=== PATIENT | female | born 1960 | race Caucasian/White ===

== ENCOUNTER 2021-10-24 13:09 | Inpatient (IN) | payer MEDICARE, MEDICAID ==
[~2021-10-24] VITALS: Ht 154.9 cm; Wt 79.8 kg
[~2021-10-24 13:09] MED LIST: ALBU8HFA IH; ARIP15TA27 PO; DIPH25CA85 PO; ESCI5TAB PO; METF-1211 PO; OMEP20 PO; TEMA15CA PO
[2021-10-24] MEDS ORDERED: HALOPERIDOL LACTATE 5 MG/ML VIAL IM ONE (14:45)
[2021-10-24] MEDS ORDERED: LORazepam 2 MG/ML VIAL IM ONE (14:45)
[2021-10-24] MEDS ORDERED: DiphenhydrAMINE HCL 50 MG/ML VIAL IM ONE (14:45)
[2021-10-24 14:49] LABS: ANION GAP 8 mmol/L (8-16); CALCIUM, TOTAL 8.8 mg/dL (8.8-10.5); CARBON DIOXIDE 29 mmol/L (22-29); CHLORIDE 104 mmol/L (98-107); CREATININE 0.75 mg/dL (0.60-1.30); GLOMERULAR FILTR. RATE CALC > 60 mL/min (>60); GLUCOSE,RANDOM 218 mg/dL (70-110); POTASSIUM 4.1 mmol/L (3.5-5.1); SODIUM SERUM 141 mmol/L (136-145); UREA NITROGEN, BLOOD 16 mg/dL (7-18)
[2021-10-24 14:55] LABS: ALANINE AMINOTRANSFERASE 17 U/L (12-78); ALKALINE PHOSPHATASE 99 U/L (46-116); ASPARTATE AMINOTRANSFERASE 13 U/L (15-37); BILIRUBIN,TOTAL 0.1 mg/dL (0.1-1.0); TOTAL PROTEIN, SERUM 6.7 g/dL (6.4-8.2)
[2021-10-24 15:28] LABS: BASOPHILS % (AUTO) 0.9 % (0.0-2.0); EOSINOPHILS % (AUTO) 1.7 % (1.0-6.0); HEMATOCRIT 36.3 % (36-46); HEMOGLOBIN 11.9 g/dL (12.0-16.0); LYMPHOCYTES # (AUTO) 2.1 K/uL (1.0-4.8); LYMPHOCYTES % (AUTO) 16.5 % (22.0-44.0); MEAN CORPUSCULAR HEMOGLOBIN 26.5 pg (26.0-34.0); MEAN CORPUSCULAR HGB CONC 32.8 G/dL (31.0-37.0); MEAN CORPUSCULAR VOLUME 81 fL (80-100); MONOCYTES # (AUTO) 0.6 K/uL (0.1-1.0); MONOCYTES % (AUTO) 4.7 % (2.0-9.0); NEUTROPHILS # (AUTO) 9.6 K/uL (1.8-7.7); NEUTROPHILS % (AUTO) 76.2 % (40.0-70.0); RED BLOOD CELL COUNT(AUTO) 4.49 MIL/uL (4.00-5.20); RED CELL DISTRIBUTION WIDTH 14.3 % (11.5-14.5)
[2021-10-24 15:36] LABS: PLATELET COUNT (AUTO) 421 K/uL (150-450)
[2021-10-24 15:39] LABS: PLATELET MORPHOLOGY COMMENT LARGE PLTS PRESENT
[2021-10-24] MEDS ORDERED: ZOLPIDEM TARTRATE 10 MG TABLET PO PRN (15:45)
[2021-10-24] MEDS ORDERED: HALOPERIDOL 5 MG TABLET PO PRN (15:45)
[2021-10-24 15:50] LABS: COVID AG,FIA SOURCE NASOPHARYNGEAL
[2021-10-24 18:46] VITALS: BP 110/60
[2021-10-25] MEDS ORDERED: PNEUMOCOCCAL VACCINE POLYVALENT 0.5 ML VIAL [PPSV23] IM. ONE (06:15)
[2021-10-25] MEDS: MetFORMIN HCL 500 MG TABLET PO SCH (07:07)
[2021-10-25 08:48] VITALS: BP 112/62
[2021-10-25] MEDS: ESCITALOPRAM OXALATE 10 MG TABLET PO SCH (13:06)
[2021-10-25 16:38] LABS: GLUCOMETER DEV NAME(LOC) BV2X.2; GLUCOSE,POINT OF CARE 131 MG/DL (70-110)
[2021-10-25] MEDS: RisperiDONE 3 MG TABLET PO SCH (16:56)
[2021-10-25] MEDS ORDERED: NICOTINE 14 MG/24 HOUR PATCH TD PRN (17:30)
[2021-10-26] MEDS: MetFORMIN HCL 500 MG TABLET PO SCH (06:53)
[2021-10-26] MEDS: RisperiDONE 3 MG TABLET PO SCH ×2 (08:13→16:10)
[2021-10-26] MEDS: ESCITALOPRAM OXALATE 10 MG TABLET PO SCH (08:14)
[2021-10-26] MEDS: LORazepam 2 MG TABLET PO PRN (08:15)
[2021-10-26 08:40] VITALS: BP 114/72
[2021-10-27] MEDS: MetFORMIN HCL 500 MG TABLET PO SCH (07:02)
[2021-10-27 08:18] VITALS: BP 134/73
[2021-10-27] MEDS: ESCITALOPRAM OXALATE 10 MG TABLET PO SCH (08:43)
[2021-10-27] MEDS: RisperiDONE 3 MG TABLET PO SCH ×2 (08:43→16:55)
[2021-10-27 16:09] VITALS: BP 151/85
[2021-10-28] MEDS: MetFORMIN HCL 500 MG TABLET PO SCH (06:44)
[2021-10-28 08:22] VITALS: BP 156/91
[2021-10-28] MEDS: ESCITALOPRAM OXALATE 10 MG TABLET PO SCH (08:28)
[2021-10-28] MEDS: RisperiDONE 3 MG TABLET PO SCH ×2 (08:28→19:06)
[2021-10-28] MEDS: LORazepam 2 MG TABLET PO PRN (15:24)
[2021-10-28 16:13] VITALS: BP 150/84
[2021-10-28 20:04] VITALS: BP 128/82
[2021-10-29 03:31] VITALS: BP 138/84
[2021-10-29] MEDS: MetFORMIN HCL 500 MG TABLET PO SCH (06:41)
[2021-10-29 08:17] VITALS: BP 124/76
[2021-10-29] MEDS: RisperiDONE 3 MG TABLET PO SCH ×2 (08:24→16:37)
[2021-10-29] MEDS: ESCITALOPRAM OXALATE 10 MG TABLET PO SCH (08:24)
[2021-10-29 09:12] LABS: GLUCOMETER DEV NAME(LOC) POC.BV
[2021-10-29] MEDS ORDERED: LOPERAMIDE HCL 2 MG CAPSULE PO ONE (14:00)
[2021-10-29] MEDS: LORazepam 2 MG TABLET PO PRN (15:24)
[2021-10-29 16:05] VITALS: BP 132/75
[2021-10-30 00:10] VITALS: BP 126/72
[2021-10-30] MEDS: MetFORMIN HCL 500 MG TABLET PO SCH (06:57)
[2021-10-30] MEDS: ESCITALOPRAM OXALATE 10 MG TABLET PO SCH (07:57)
[2021-10-30] MEDS: RisperiDONE 3 MG TABLET PO SCH (07:57)
[2021-10-30 09:03] VITALS: BP 118/68
[2021-10-30] MEDS ORDERED: RISP3TAB63 PO (11:09)
[2021-10-30] MEDS ORDERED: ESCI10 PO (11:09)
== END 2021-10-30 15:30 | disposition home or self-care (01) | DRG 885 ==
LOC: EMS 13:09 → B2X 17:01
PROVIDERS: ADMIT Psychiatry & Neurology Child & Adolescent Psychiatry; ATTEND Psychiatry & Neurology Child & Adolescent Psychiatry
DX: F25.0 Schizoaffective disorder, bipolar type (principal); R45.851 Suicidal ideations; D72.829 Elevated white blood cell count, unspecified; E78.5 Hyperlipidemia, unspecified; F10.10 Alcohol abuse, uncomplicated; F15.10 Other stimulant abuse, uncomplicated; G89.29 Other chronic pain; J44.9 Chronic obstructive pulmonary disease, unspecified; K59.00 Constipation, unspecified; F41.9 Anxiety disorder, unspecified; Y90.9 Presence of alcohol in blood, level not specified; Z20.822 Contact with and (suspected) exposure to COVID-19; F22 Delusional disorders; F19.10 Other psychoactive substance abuse, uncomplicated; Z71.51 Drug abuse counseling and surveillance of drug abuser; Z86.73 Personal history of transient ischemic attack (TIA), and cerebral infarction without residual deficits; Z28.21 Immunization not carried out because of patient refusal; Z71.41 Alcohol abuse counseling and surveillance of alcoholic
CPT/HCPCS: 80053; 82962; 85025; 87081; 99285; G0480; J1200; J1630; J2060

== ENCOUNTER 2023-06-18 15:20 | Inpatient (IN) | payer MEDICARE, OTHER ==
[~2023-06-18] VITALS: Ht 154.9 cm; Wt 68.1 kg
[~2023-06-18 15:20] MED LIST changes: -ALBU8HFA IH; -ARIP15TA27 PO; -DIPH25CA85 PO; +ESCI10 PO; -ESCI5TAB PO; -METF-1211 PO; -OMEP20 PO; +RISP3TAB63 PO; -TEMA15CA PO
[2023-06-18] MEDS ORDERED: ZOLPIDEM TARTRATE 10 MG TABLET PO PRN (20:30)
[2023-06-18 21:23] VITALS: BP 143/93; PULSE 86; RESP 18; TEMP 97.9; O2SAT 97
[2023-06-18] MEDS ORDERED: ONDANSETRON HCL 4 MG TABLET PO PRN (21:45)
[2023-06-18] MEDS ORDERED: MAGNESIUM HYDROXIDE SUSPENSION 30 ML UDCUP PO PRN (21:45)
[2023-06-18] MEDS ORDERED: IBUPROFEN 600 MG TABLET PO PRN (21:45)
[2023-06-18] MEDS ORDERED: BACITRACIN 28 GM OINTMENT TP PRN (21:45)
[2023-06-18] MEDS ORDERED: DOCUSATE SODIUM 100 MG CAPSULE PO PRN (21:45)
[2023-06-18] MEDS ORDERED: ACETAMINOPHEN 325 MG TABLET PO PRN (21:45)
[2023-06-18] MEDS ORDERED: PETROLATUM,WHITE 28 GM JELLY TP PRN (21:45)
[2023-06-18] MEDS ORDERED: MAG HYDROX/ALUMINUM HYD/SIMETH ES 30 ML SUSPENSION UDCUP PO PRN (21:45)
[2023-06-18] MEDS ORDERED: CloNIDine HCL 0.1 MG TABLET PO PRN (21:45)
[2023-06-18] MEDS ORDERED: OMEPRAZOLE 20 MG CAPSULE PO PRN (21:45)
[2023-06-18] MEDS ORDERED: ALBUTEROL SULFATE HFA 90 MCG/PUFF 8 GM INHALER IH PRN (21:45)
[2023-06-18] MEDS ORDERED: BENZOCAINE/MENTHOL LOZENGE PO PRN (21:45)
[2023-06-18] MEDS ORDERED: PNEUMOCOCCAL VACCINE POLYVALENT 0.5 ML SYRINGE [PPSV23] IM. ONE (23:15)
[2023-06-18] MEDS ORDERED: INFLUENZA VIRUS VACCINE QVS 2023-24 (6MO+)/PF 60 MCG/0.5 ML SYRINGE IM. ONE (23:15)
[2023-06-19 08:21] VITALS: BP 137/62; PULSE 80; RESP 16; TEMP 98; O2SAT 98
[2023-06-19] MEDS: HALOPERIDOL 5 MG TABLET PO PRN ×2 (08:22→10:13)
[2023-06-19] MEDS: LORazepam 2 MG TABLET PO PRN ×2 (08:22→10:13)
[2023-06-19 08:43] LABS: BASOPHILS % (AUTO) 0.4 % (0.0-2.0); EOSINOPHILS % (AUTO) 3.2 % (1.0-6.0); HEMATOCRIT 39.2 % (36-46); HEMOGLOBIN 13.1 g/dL (12.0-16.0); LYMPHOCYTES # (AUTO) 1.7 K/uL (1.0-4.8); LYMPHOCYTES % (AUTO) 24.8 % (22.0-44.0); MEAN CORPUSCULAR HEMOGLOBIN 28.8 pg (26.0-34.0); MEAN CORPUSCULAR HGB CONC 33.6 G/dL (31.0-37.0); MEAN CORPUSCULAR VOLUME 86 fL (80-100); MONOCYTES # (AUTO) 0.5 K/uL (0.1-1.0); MONOCYTES % (AUTO) 6.7 % (2.0-9.0); NEUTROPHILS # (AUTO) 4.6 K/uL (1.8-7.7); NEUTROPHILS % (AUTO) 64.9 % (40.0-70.0); PLATELET COUNT (AUTO) 420 K/uL (150-450); RED BLOOD CELL COUNT(AUTO) 4.57 MIL/uL (4.00-5.20); RED CELL DISTRIBUTION WIDTH 13.8 % (11.5-14.5)
[2023-06-19 09:01] LABS: HEMOGLOBIN A1C 6.4 % (3.8-5.6)
[2023-06-19 09:19] LABS: ALANINE AMINOTRANSFERASE 23 U/L (12-78); ALBUMIN 3.2 g/dL (3.4-5.0); ALKALINE PHOSPHATASE 101 U/L (46-116); ANION GAP 11 mmol/L (8-16); ASPARTATE AMINOTRANSFERASE 14 U/L (15-37); BILIRUBIN,TOTAL 0.5 mg/dL (0.1-1.0); CALCIUM, TOTAL 8.8 mg/dL (8.8-10.5); CARBON DIOXIDE 25 mmol/L (22-29); CHLORIDE 105 mmol/L (98-107); CHOL/HDL RATIO 4.2 (3.9-5.7); CHOLESTEROL 158 mg/dL (131-200); CREATININE 0.72 mg/dL (0.60-1.30); GLOMERULAR FILTR. RATE CALC > 60 mL/min (>60); GLUCOSE,RANDOM 199 mg/dL (70-110); HDL CHOLESTEROL 38 mg/dL (40-60); LDL CHOL (CALC.) 87 mg/dL (0-130); POTASSIUM 3.3 mmol/L (3.5-5.1); SODIUM SERUM 141 mmol/L (136-145); TOTAL PROTEIN, SERUM 6.9 g/dL (6.4-8.2); TRIGLYCERIDES 166 mg/dL (15-150); UREA NITROGEN, BLOOD 22 mg/dL (7-18)
[2023-06-19 09:48] LABS: FREE T4 (FREE THYROXINE) 1.12 ng/dL (0.76-1.46); THYROID STIMULATING HORMONE 0.86 uIU/mL (0.36-3.74)
[2023-06-19] MEDS: DIVALPROEX SODIUM 500 MG DR TABLET PO SCH (16:33)
[2023-06-19] MEDS: RisperiDONE 3 MG TABLET PO SCH (16:33)
[2023-06-19 19:21] LABS: GLUCOMETER DEV NAME(LOC) BV3S.; GLUCOSE,POINT OF CARE 154 MG/DL (70-110)
[2023-06-19 20:20] VITALS: BP 148/72; PULSE 73; RESP 18; TEMP 97.5; O2SAT 95
[2023-06-19] MEDS ORDERED: LOSARTAN POTASSIUM 50 MG TABLET PO SCH ×2 (21:00→21:03)
[2023-06-19] MEDS ORDERED: LOSARTAN POTASSIUM 25 MG TABLET PO SCH (21:00)
[2023-06-19] MEDS: LOSARTAN POTASSIUM 50 MG TABLET PO SCH ×2 (21:08→21:16)
[2023-06-20] MEDS: GlipiZIDE 5 MG TABLET PO SCH ×2 (06:48→17:05)
[2023-06-20] MEDS: MetFORMIN HCL 500 MG TABLET PO SCH ×2 (06:48→17:05)
[2023-06-20] MEDS ORDERED: POTASSIUM CHLORIDE 20 MEQ ER TABLET PO ONE (07:30)
[2023-06-20] MEDS: RisperiDONE 3 MG TABLET PO SCH ×2 (07:53→17:05)
[2023-06-20] MEDS: ESCITALOPRAM OXALATE 10 MG TABLET PO SCH (07:53)
[2023-06-20] MEDS: LORazepam 2 MG TABLET PO PRN (07:53)
[2023-06-20] MEDS: DIVALPROEX SODIUM 500 MG DR TABLET PO SCH ×2 (07:54→17:05)
[2023-06-20] MEDS: LOSARTAN POTASSIUM 25 MG TABLET PO SCH (20:55)
[2023-06-21] MEDS: GlipiZIDE 5 MG TABLET PO SCH ×2 (06:40→16:15)
[2023-06-21] MEDS: MetFORMIN HCL 500 MG TABLET PO SCH ×2 (06:40→16:15)
[2023-06-21] MEDS: ESCITALOPRAM OXALATE 10 MG TABLET PO SCH (08:03)
[2023-06-21] MEDS: DIVALPROEX SODIUM 500 MG DR TABLET PO SCH ×2 (08:03→16:15)
[2023-06-21] MEDS: RisperiDONE 3 MG TABLET PO SCH ×2 (08:04→16:15)
[2023-06-21 08:26] VITALS: BP 155/91; PULSE 86; RESP 18; TEMP 98.2; O2SAT 96
[2023-06-21] MEDS: LORazepam 2 MG TABLET PO PRN (08:35)
[2023-06-21] MEDS: LOSARTAN POTASSIUM 25 MG TABLET PO SCH (20:11)
[2023-06-21 20:36] VITALS: BP 142/84; PULSE 82; RESP 18; TEMP 97.7; O2SAT 98
[2023-06-22] MEDS: GlipiZIDE 5 MG TABLET PO SCH ×2 (06:08→16:44)
[2023-06-22] MEDS: MetFORMIN HCL 500 MG TABLET PO SCH ×2 (06:08→17:06)
[2023-06-22 08:12] VITALS: BP 120/70; PULSE 98; RESP 16; TEMP 97.6; O2SAT 97
[2023-06-22] MEDS: ESCITALOPRAM OXALATE 10 MG TABLET PO SCH (08:37)
[2023-06-22] MEDS: DIVALPROEX SODIUM 500 MG DR TABLET PO SCH ×2 (08:37→17:06)
[2023-06-22] MEDS: RisperiDONE 3 MG TABLET PO SCH ×2 (08:37→17:07)
[2023-06-22] MEDS: LOPERAMIDE HCL 2 MG CAPSULE PO PRN (18:41)
[2023-06-22] MEDS: LOSARTAN POTASSIUM 25 MG TABLET PO SCH (21:21)
[2023-06-22 21:36] VITALS: BP 141/78; PULSE 100; RESP 18; TEMP 97.4; O2SAT 98
[2023-06-23] MEDS: GlipiZIDE 5 MG TABLET PO SCH ×2 (06:09→16:03)
[2023-06-23] MEDS: MetFORMIN HCL 500 MG TABLET PO SCH ×2 (06:09→17:17)
[2023-06-23 08:35] VITALS: BP 131/79; PULSE 85; RESP 16; TEMP 97.6; O2SAT 96
[2023-06-23] MEDS: DIVALPROEX SODIUM 500 MG DR TABLET PO SCH ×2 (09:05→16:03)
[2023-06-23] MEDS: RisperiDONE 3 MG TABLET PO SCH ×2 (09:05→16:03)
[2023-06-23] MEDS: LOPERAMIDE HCL 2 MG CAPSULE PO PRN (09:05)
[2023-06-23] MEDS: ESCITALOPRAM OXALATE 10 MG TABLET PO SCH (09:05)
[2023-06-23 20:03] VITALS: BP 108/60; PULSE 98; RESP 17; TEMP 97.8
[2023-06-23] MEDS: LOSARTAN POTASSIUM 25 MG TABLET PO SCH (22:35)
[2023-06-24] MEDS: GlipiZIDE 5 MG TABLET PO SCH (06:22)
[2023-06-24] MEDS: MetFORMIN HCL 500 MG TABLET PO SCH (06:42)
[2023-06-24 08:22] VITALS: BP 121/74; PULSE 83; RESP 17; TEMP 97.6; O2SAT 100
[2023-06-24] MEDS: DIVALPROEX SODIUM 500 MG DR TABLET PO SCH (08:22)
[2023-06-24] MEDS: RisperiDONE 3 MG TABLET PO SCH (08:22)
[2023-06-24] MEDS: ESCITALOPRAM OXALATE 10 MG TABLET PO SCH (08:22)
[2023-06-24] MEDS ORDERED: DIVA-112 PO (13:23)
[2023-06-24] MEDS ORDERED: LOSA-381 PO (13:24)
[2023-06-24] MEDS ORDERED: METF-1211 PO (13:24)
[2023-06-24] MEDS ORDERED: GLIP5TAB16 PO (13:24)
== END 2023-06-24 15:30 | disposition home or self-care (01) | DRG 881 ==
LOC: B3A 20:28
PROVIDERS: ADMIT Psychiatry & Neurology Psychiatry; ATTEND Psychiatry & Neurology Psychiatry
DX: F32.9 Major depressive disorder, single episode, unspecified (principal); R45.851 Suicidal ideations; J44.9 Chronic obstructive pulmonary disease, unspecified; E11.9 Type 2 diabetes mellitus without complications; K59.00 Constipation, unspecified; K21.9 Gastro-esophageal reflux disease without esophagitis; M54.50 Low back pain, unspecified; F41.9 Anxiety disorder, unspecified; G47.00 Insomnia, unspecified; Z87.891 Personal history of nicotine dependence
CPT/HCPCS: 80053; 80061; 80164; 82962; 83036; 84439; 84443; 85025

== ENCOUNTER 2025-01-23 10:49 | Inpatient (IN) | payer MEDICARE ==
[~2025-01-23 10:49] MED LIST changes: +DIVA-112 PO; +GLIP5TAB16 PO; +LOSA-381 PO; +METF-1211 PO; -RISP3TAB63 PO; +RISP3TAB77 PO
[2025-01-23 14:30] VITALS: BP 129/98; PULSE 72; RESP 18; TEMP 97.6; O2SAT 97
[2025-01-23 20:24] VITALS: BP 135/85; PULSE 77; RESP 18; TEMP 98; O2SAT 99
[2025-01-24 08:41] VITALS: BP 165/81; PULSE 69; RESP 16; TEMP 97.5; O2SAT 96
[2025-01-24 08:41] LABS: PLATELET COUNT (AUTO) 438 K/uL (150-450); RED BLOOD CELL COUNT(AUTO) 4.10 MIL/uL (4.00-5.20); RED CELL DISTRIBUTION WIDTH 14.2 % (11.5-14.5); WHITE BLOOD COUNT (AUTO) 7.2 K/uL (4.5-11.0)
[2025-01-24 08:52] LABS: ALCOHOL, BLOOD (SERUM) < 3 mg/dL (0-10)
[2025-01-24 08:55] LABS: ASPARTATE AMINOTRANSFERASE 18 U/L (15-37); CALCIUM, TOTAL 8.1 mg/dL (8.8-10.5); CREATININE 0.78 mg/dL (0.60-1.30); GLOMERULAR FILTR. RATE CALC > 60 mL/min (>60); GLUCOSE,RANDOM 184 mg/dL (70-110); SODIUM SERUM 142 mmol/L (136-145); TOTAL PROTEIN, SERUM 6.8 g/dL (6.4-8.2); UREA NITROGEN, BLOOD 18 mg/dL (7-18)
[2025-01-24] MEDS ORDERED: DOCUSATE SODIUM 100 MG CAPSULE PO PRN (09:15)
[2025-01-24] MEDS ORDERED: ACETAMINOPHEN 325 MG TABLET PO PRN (09:15)
[2025-01-24] MEDS ORDERED: ONDANSETRON 4 MG TABLET PO PRN (09:15)
[2025-01-24] MEDS ORDERED: BENZOCAINE/MENTHOL [CEPACOL] LOZENGE PO PRN (09:15)
[2025-01-24] MEDS ORDERED: PETROLATUM,WHITE 28 GM JELLY TP PRN (09:15)
[2025-01-24] MEDS ORDERED: MAGNESIUM HYDROXIDE SUSPENSION 30 ML UDCUP PO PRN (09:15)
[2025-01-24] MEDS ORDERED: MAG HYDROX/ALUMINUM HYD/SIMETH ES 30 ML SUSPENSION UDCUP PO PRN (09:15)
[2025-01-24] MEDS ORDERED: BACITRACIN 28 GM OINTMENT TP PRN (09:15)
[2025-01-24] MEDS ORDERED: ALBUTEROL SULFATE HFA 90 MCG/PUFF 8 GM INHALER IH PRN (09:15)
[2025-01-24] MEDS ORDERED: OMEPRAZOLE 20 MG CAPSULE PO PRN (09:15)
[2025-01-24 09:26] LABS: CHOL/HDL RATIO 5.5 (3.9-5.7); LDL CHOL (CALC.) 105 mg/dL (0-130)
[2025-01-24 20:22] VITALS: BP 117/70; PULSE 90; RESP 18; TEMP 98.1; O2SAT 98
[2025-01-24 20:32] VITALS: BP 142/84; PULSE 83; RESP 18
[2025-01-24] MEDS: LOPERAMIDE HCL 2 MG CAPSULE PO PRN (20:33)
[2025-01-24] MEDS: LOSARTAN POTASSIUM 25 MG TABLET PO SCH (20:33)
[2025-01-25 08:25] VITALS: BP 148/86; PULSE 69; RESP 16; TEMP 97; O2SAT 95
[2025-01-25] MEDS: POTASSIUM CHLORIDE 20 MEQ ER TABLET PO ONE (08:59)
[2025-01-25] MEDS: NICOTINE POLACRILEX 2 MG LOZENGE PO PRN (10:16)
[2025-01-25 20:14] VITALS: BP 125/71; PULSE 66; RESP 18; TEMP 97.8; O2SAT 97
[2025-01-25 20:37] VITALS: BP 125/83; PULSE 77; RESP 18
[2025-01-26 08:33] VITALS: BP 101/61; PULSE 62; RESP 16; TEMP 97.8; O2SAT 95
[2025-01-26] MEDS: ESCITALOPRAM OXALATE 10 MG TABLET PO SCH (14:50)
[2025-01-26] MEDS: BENZTROPINE MESYLATE 1 MG TABLET PO SCH (14:50)
[2025-01-26 20:09] VITALS: BP 152/80; PULSE 64; RESP 19; TEMP 97.8; O2SAT 97
[2025-01-27 08:29] VITALS: BP 118/73; PULSE 62; RESP 17; TEMP 98.4; O2SAT 96
[2025-01-27 20:38] VITALS: BP 150/78; PULSE 71; RESP 18; TEMP 97.7; O2SAT 97
[2025-01-28 08:46] VITALS: BP 105/66; PULSE 84; RESP 18; TEMP 92.1; O2SAT 98
[2025-01-28 20:35] VITALS: BP 124/76; PULSE 77; RESP 17; TEMP 97; O2SAT 98
[2025-01-29 10:15] LABS: APPEARANCE,URINE TURBID (CLEAR); GLUCOSE, URINE (UA) NEGATIVE (NEGATIVE); LEUKOCYTE ESTERASE ,URINE MODERATE (NEGATIVE); NITRATE,URINE NEGATIVE (NEGATIVE); OCCULT BLOOD,URINE NEGATIVE (NEGATIVE); PH,URINE DRUG SCREEN 5.0 (5.0-8.0); SPECIFIC GRAVITIY, URINE 1.024 (1.003-1.030)
[2025-01-29 10:22] LABS: ALCOHOL, URINE DRUG SCREEN NEGATIVE (NEGATIVE); AMPHET/METH SCREEN,URINE NEGATIVE (NEGATIVE); BARBITURATE SCREEN, URINE NEGATIVE (NEGATIVE); CANNABINOID SCREEN,URINE NEGATIVE (NEGATIVE); COCAINE SCREEN,URINE NEGATIVE (NEGATIVE); METHADONE SCREEN, URINE NEGATIVE (NEGATIVE)
[2025-01-29] MEDS: NITROFURANTOIN MONOHYD/M-CRYST 100 MG CAPSULE [MACROBID] PO SCH (17:00)
[2025-01-29 20:24] VITALS: RESP 18
[2025-01-30 08:51] VITALS: BP 124/98; PULSE 60; RESP 17; TEMP 98.7; O2SAT 97
[2025-01-30 11:40] VITALS: BP 128/82; PULSE 62; RESP 18; TEMP 98.4; O2SAT 98
[2025-01-30 12:11] LABS: GLUCOMETER DEV NAME(LOC) BV2X.3; GLUCOSE,POINT OF CARE 115 MG/DL (70-110)
[2025-01-30 14:34] VITALS: BP 121/72; PULSE 72; RESP 18; TEMP 97.9; O2SAT 97
[2025-01-30 20:09] VITALS: BP 123/80; PULSE 60; RESP 18; TEMP 97.7; O2SAT 97
[2025-01-30] MEDS: ZOLPIDEM TARTRATE 10 MG TABLET PO PRN (20:43)
[2025-01-31 08:31] VITALS: BP 130/82; PULSE 83; RESP 16; TEMP 97.2; O2SAT 98
[2025-01-31 20:09] VITALS: BP 116/81; PULSE 60; RESP 18; TEMP 97.6; O2SAT 99
[2025-02-01 08:19] VITALS: BP 123/66; PULSE 70; RESP 16; TEMP 98.7; O2SAT 97
[2025-02-01 17:05] LABS: GLUCOMETER DEV NAME(LOC) BV2X.3; GLUCOSE,POINT OF CARE 149 MG/DL (70-110)
[2025-02-01 20:09] VITALS: BP 121/64; PULSE 69; RESP 17; TEMP 97.5; O2SAT 98
[2025-02-01] MEDS: PNEUMOCOCCAL VACCINE POLYVALENT 0.5 ML SYRINGE [PPSV23] IM. ONE (20:57)
[2025-02-02 08:27] VITALS: BP 120/67; PULSE 62; RESP 17; TEMP 97.6; O2SAT 98
[2025-02-02 16:55] LABS: GLUCOMETER DEV NAME(LOC) BV2X.3; GLUCOSE,POINT OF CARE 168 MG/DL (70-110)
[2025-02-02 20:24] VITALS: BP 131/91; PULSE 120; PULSE 78; RESP 18; TEMP 97.9; O2SAT 97
[2025-02-02] MEDS: IBUPROFEN 600 MG TABLET PO PRN (20:26)
[2025-02-02 20:28] VITALS: BP 120/60; PULSE 73; RESP 18; TEMP 98.6; O2SAT 97
[2025-02-02 21:26] VITALS: RESP 18
[2025-02-02 21:51] LABS: GLUCOMETER DEV NAME(LOC) BV2X.3; GLUCOSE,POINT OF CARE 102 MG/DL (70-110)
[2025-02-03 06:41] LABS: GLUCOMETER DEV NAME(LOC) BV2X.3; GLUCOSE,POINT OF CARE 134 MG/DL (70-110)
[2025-02-03 08:29] VITALS: BP 116/68; PULSE 89; RESP 16; TEMP 97.5; O2SAT 96
[2025-02-03] MEDS: NITROFURANTOIN MONOHYD/M-CRYST 100 MG CAPSULE [MACROBID] PO SCH (10:45)
[2025-02-03 11:45] LABS: GLUCOMETER DEV NAME(LOC) BV2X.3; GLUCOSE,POINT OF CARE 155 MG/DL (70-110)
[2025-02-03 15:21] LABS: GLUCOMETER DEV NAME(LOC) BV2S.; GLUCOSE,POINT OF CARE 113 MG/DL (70-110)
[2025-02-03 15:21] LABS: GLUCOMETER DEV NAME(LOC) BV2S.; GLUCOSE,POINT OF CARE 104 MG/DL (70-110)
[2025-02-03 15:21] LABS: GLUCOMETER DEV NAME(LOC) BV2S.; GLUCOSE,POINT OF CARE 141 MG/DL (70-110)
[2025-02-03 15:21] LABS: GLUCOMETER DEV NAME(LOC) BV2S.; GLUCOSE,POINT OF CARE 193 MG/DL (70-110)
[2025-02-03 15:21] LABS: GLUCOMETER DEV NAME(LOC) BV2S.; GLUCOSE,POINT OF CARE 184 MG/DL (70-110)
[2025-02-03 18:30] LABS: GLUCOMETER DEV NAME(LOC) BV2X.3; GLUCOSE,POINT OF CARE 172 MG/DL (70-110)
[2025-02-03 20:35] VITALS: BP 124/78; PULSE 82; RESP 17; TEMP 97.8; O2SAT 97
[2025-02-04 12:05] LABS: GLUCOMETER DEV NAME(LOC) BV2S.; GLUCOSE,POINT OF CARE 139 MG/DL (70-110)
[2025-02-04 16:46] LABS: GLUCOMETER DEV NAME(LOC) BV2S.; GLUCOSE,POINT OF CARE 141 MG/DL (70-110)
[2025-02-04 20:17] VITALS: RESP 18
[2025-02-05 10:16] VITALS: BP 116/73; PULSE 66; RESP 16; TEMP 98.1; O2SAT 98
[2025-02-05 12:16] LABS: GLUCOMETER DEV NAME(LOC) BV2S.; GLUCOSE,POINT OF CARE 137 MG/DL (70-110)
[2025-02-05 17:05] LABS: GLUCOMETER DEV NAME(LOC) BV2S.; GLUCOSE,POINT OF CARE 193 MG/DL (70-110)
[2025-02-05 20:16] VITALS: BP 98/67; PULSE 67; RESP 17; TEMP 97.7; O2SAT 97
[2025-02-05 20:45] LABS: GLUCOMETER DEV NAME(LOC) BV2S.; GLUCOSE,POINT OF CARE 79 MG/DL (70-110)
[2025-02-06 08:11] VITALS: BP 132/89; PULSE 68; RESP 17; TEMP 96.5; O2SAT 97
[2025-02-06 12:10] LABS: GLUCOMETER DEV NAME(LOC) BV2S.; GLUCOSE,POINT OF CARE 144 MG/DL (70-110)
[2025-02-06 17:00] LABS: GLUCOMETER DEV NAME(LOC) BV2S.; GLUCOSE,POINT OF CARE 165 MG/DL (70-110)
[2025-02-06 20:08] VITALS: BP 131/102; PULSE 60; RESP 18; TEMP 97.6; O2SAT 97
[2025-02-06 20:20] LABS: GLUCOMETER DEV NAME(LOC) BV2S.; GLUCOSE,POINT OF CARE 133 MG/DL (70-110)
[2025-02-07 07:00] LABS: GLUCOMETER DEV NAME(LOC) BV2S.; GLUCOSE,POINT OF CARE 145 MG/DL (70-110)
[2025-02-07 11:50] LABS: GLUCOMETER DEV NAME(LOC) BV2S.; GLUCOSE,POINT OF CARE 92 MG/DL (70-110)
[2025-02-07 17:20] LABS: GLUCOMETER DEV NAME(LOC) BV2S.; GLUCOSE,POINT OF CARE 213 MG/DL (70-110)
[2025-02-07 20:04] VITALS: BP 97/86; PULSE 68; RESP 18; TEMP 97.6; O2SAT 98
[2025-02-07 21:26] LABS: GLUCOMETER DEV NAME(LOC) BV2S.; GLUCOSE,POINT OF CARE 70 MG/DL (70-110)
[2025-02-08 07:10] LABS: GLUCOMETER DEV NAME(LOC) BV2X.3; GLUCOSE,POINT OF CARE 143 MG/DL (70-110)
[2025-02-08 08:38] VITALS: BP 139/82; PULSE 74; RESP 17; TEMP 98.6; O2SAT 96
[2025-02-08] MEDS ORDERED: DEXTROSE 50%-WATER 25 GM/50 ML SYRINGE IVP PRN (11:30)
[2025-02-08] MEDS: INSULIN LISPRO 100 UNITS/ML SQ PRN (11:50)
[2025-02-08 15:25] LABS: GLUCOMETER DEV NAME(LOC) BV2S.; GLUCOSE,POINT OF CARE 159 MG/DL (70-110)
[2025-02-08 20:07] VITALS: BP 117/67; PULSE 63; RESP 17; TEMP 97.8; O2SAT 96
[2025-02-09 08:12] VITALS: BP 145/77; PULSE 68; RESP 17; TEMP 97.3; O2SAT 97
[2025-02-09 16:30] LABS: GLUCOMETER DEV NAME(LOC) BV2S.; GLUCOSE,POINT OF CARE 175 MG/DL (70-110)
[2025-02-09 20:09] VITALS: BP 145/91; PULSE 74; RESP 18; TEMP 98.1; O2SAT 97
[2025-02-09 20:51] LABS: GLUCOMETER DEV NAME(LOC) BV2S.; GLUCOSE,POINT OF CARE 151 MG/DL (70-110)
[2025-02-09] MEDS ORDERED: GLUCAGON,HUMAN RECOMBINANT 1 MG VIAL IM PRN (21:00)
[2025-02-10 06:55] LABS: GLUCOMETER DEV NAME(LOC) BV2S.; GLUCOSE,POINT OF CARE 134 MG/DL (70-110)
[2025-02-10 08:22] VITALS: RESP 18
[2025-02-10 13:20] VITALS: BP 119/82; PULSE 76; RESP 18; TEMP 98.2; O2SAT 97
[2025-02-10] MEDS: INSULIN LISPRO 100 UNITS/ML SQ PRN (16:41)
[2025-02-10 16:50] LABS: GLUCOMETER DEV NAME(LOC) BV2S.; GLUCOSE,POINT OF CARE 174 MG/DL (70-110)
[2025-02-10 20:06] VITALS: BP 129/69; PULSE 78; RESP 18; TEMP 97.6; O2SAT 100
[2025-02-10 21:46] LABS: GLUCOMETER DEV NAME(LOC) BV2S.; GLUCOSE,POINT OF CARE 143 MG/DL (70-110)
[2025-02-11 07:00] LABS: GLUCOMETER DEV NAME(LOC) BV2S.; GLUCOSE,POINT OF CARE 134 MG/DL (70-110)
[2025-02-11 08:31] LABS: PLATELET COUNT (AUTO) 380 K/uL (150-450); RED BLOOD CELL COUNT(AUTO) 4.05 MIL/uL (4.00-5.20); RED CELL DISTRIBUTION WIDTH 14.1 % (11.5-14.5); WHITE BLOOD COUNT (AUTO) 9.6 K/uL (4.5-11.0)
[2025-02-11 08:56] LABS: ASPARTATE AMINOTRANSFERASE 11 U/L (15-37); CALCIUM, TOTAL 8.4 mg/dL (8.8-10.5); CHOL/HDL RATIO 4.8 (3.9-5.7); CREATININE 0.84 mg/dL (0.60-1.30); GLOMERULAR FILTR. RATE CALC > 60 mL/min (>60); GLUCOSE,RANDOM 128 mg/dL (70-110); LDL CHOL (CALC.) 98 mg/dL (0-130); PHOSPHORUS 3.7 mg/dL (2.5-4.9); SODIUM SERUM 140 mmol/L (136-145); TOTAL PROTEIN, SERUM 6.7 g/dL (6.4-8.2); UREA NITROGEN, BLOOD 16 mg/dL (7-18)
[2025-02-11 11:55] LABS: GLUCOMETER DEV NAME(LOC) BV2S.; GLUCOSE,POINT OF CARE 94 MG/DL (70-110)
[2025-02-11 15:53] VITALS: RESP 16
[2025-02-11 18:15] LABS: GLUCOMETER DEV NAME(LOC) BV2S.; GLUCOSE,POINT OF CARE 143 MG/DL (70-110)
[2025-02-11 20:06] VITALS: BP 114/70; PULSE 74; RESP 18; TEMP 98; O2SAT 96
[2025-02-11 21:30] LABS: GLUCOMETER DEV NAME(LOC) BV2S.; GLUCOSE,POINT OF CARE 109 MG/DL (70-110)
[2025-02-12 07:15] LABS: GLUCOMETER DEV NAME(LOC) BV2S.; GLUCOSE,POINT OF CARE 120 MG/DL (70-110)
[2025-02-12 08:04] VITALS: BP 102/60; PULSE 66; RESP 17; TEMP 97.2; O2SAT 98
[2025-02-12 12:05] LABS: GLUCOMETER DEV NAME(LOC) BV2S.; GLUCOSE,POINT OF CARE 91 MG/DL (70-110)
[2025-02-12 16:46] LABS: GLUCOMETER DEV NAME(LOC) BV2S.; GLUCOSE,POINT OF CARE 156 MG/DL (70-110)
[2025-02-12 20:15] VITALS: BP 111/74; PULSE 66; RESP 18; TEMP 98; O2SAT 97
[2025-02-12 20:36] LABS: GLUCOMETER DEV NAME(LOC) BV2S.; GLUCOSE,POINT OF CARE 103 MG/DL (70-110)
[2025-02-13 06:15] LABS: GLUCOMETER DEV NAME(LOC) BV2S.; GLUCOSE,POINT OF CARE 118 MG/DL (70-110)
[2025-02-13 07:55] VITALS: BP 122/79; PULSE 67; RESP 16; TEMP 98.2; O2SAT 95
[2025-02-13 08:03] VITALS: BP 122/79; PULSE 67; RESP 16; TEMP 98.2; O2SAT 95
[2025-02-13 11:36] LABS: GLUCOMETER DEV NAME(LOC) BV2S.; GLUCOSE,POINT OF CARE 138 MG/DL (70-110)
[2025-02-13 16:40] LABS: GLUCOMETER DEV NAME(LOC) BV2S.; GLUCOSE,POINT OF CARE 163 MG/DL (70-110)
[2025-02-13 20:07] VITALS: BP 100/82; PULSE 71; RESP 18; TEMP 97.9; O2SAT 99
[2025-02-13 21:25] LABS: GLUCOMETER DEV NAME(LOC) BV2S.; GLUCOSE,POINT OF CARE 155 MG/DL (70-110)
[2025-02-14 05:55] LABS: GLUCOMETER DEV NAME(LOC) BV2S.; GLUCOSE,POINT OF CARE 121 MG/DL (70-110)
[2025-02-14 08:15] VITALS: BP 117/60; PULSE 78; RESP 17; TEMP 98.6; O2SAT 97
[2025-02-14] MEDS ORDERED: BENZ-247 PO (08:49)
[2025-02-14] MEDS ORDERED: ESCI-8 PO (08:49)
[2025-02-14] MEDS ORDERED: LOSA-381 PO (09:24)
== END 2025-02-14 11:24 | disposition home or self-care (01) | DRG 881 ==
LOC: B2S 13:46 → UNDODISIN 02-11 16:30
PROVIDERS: ADMIT Psychiatry & Neurology Psychiatry; ATTEND Psychiatry & Neurology Psychiatry
PROC: GZ56ZZZ Individual Psychotherapy, Supportive (ICD-10-PCS; principal; 2025-01-31)
PROC: GZHZZZZ Group Psychotherapy (ICD-10-PCS; 2025-02-02)
DX: F32.9 Major depressive disorder, single episode, unspecified (principal); R45.851 Suicidal ideations; J44.9 Chronic obstructive pulmonary disease, unspecified; E11.9 Type 2 diabetes mellitus without complications; K59.00 Constipation, unspecified; I10 Essential (primary) hypertension; F41.9 Anxiety disorder, unspecified; G47.00 Insomnia, unspecified; K21.9 Gastro-esophageal reflux disease without esophagitis; F15.90 Other stimulant use, unspecified, uncomplicated; B18.2 Chronic viral hepatitis C; Z72.0 Tobacco use
CPT/HCPCS: 80053; 80061; 80307; 81001; 82962; 83036; 83735; 84100; 84132; 84436; 84443; 85025; 86592; 87086; G0480

== ENCOUNTER 2025-04-21 12:55 | Emergency (ER) | payer MEDICARE, MEDICAID ==
[~2025-04-21] VITALS: Ht 154.9 cm; Wt 81.8 kg
[~2025-04-21 12:55] MED LIST changes: +BENZ-247 PO; -DIVA-112 PO; +ESCI-8 PO; -ESCI10 PO; -RISP3TAB77 PO
[2025-04-21 13:15] VITALS: TEMP 98.2
[2025-04-21 14:39] LABS: PLATELET COUNT (AUTO) 515 K/uL (150-450); RED BLOOD CELL COUNT(AUTO) 4.47 MIL/uL (4.00-5.20); RED CELL DISTRIBUTION WIDTH 14.8 % (11.5-14.5); WHITE BLOOD COUNT (AUTO) 11.0 K/uL (4.5-11.0)
[2025-04-21 14:55] LABS: CALCIUM, TOTAL 9.0 mg/dL (8.8-10.5); CREATININE 0.85 mg/dL (0.60-1.30); GLOMERULAR FILTR. RATE CALC > 60 mL/min (>60); GLUCOSE,RANDOM 159 mg/dL (70-110); SODIUM SERUM 142 mmol/L (136-145); UREA NITROGEN, BLOOD 14 mg/dL (7-18)
[2025-04-21 15:19] LABS: APPEARANCE,URINE CLEAR (CLEAR); GLUCOSE, URINE (UA) >=1000 mg/dL (NEGATIVE); LEUKOCYTE ESTERASE ,URINE TRACE (NEGATIVE); NITRATE,URINE NEGATIVE (NEGATIVE); OCCULT BLOOD,URINE NEGATIVE (NEGATIVE); PH,URINE DRUG SCREEN 5.0 (5.0-8.0); SPECIFIC GRAVITIY, URINE 1.044 (1.003-1.030)
[2025-04-21 15:25] LABS: ALCOHOL, URINE DRUG SCREEN NEGATIVE (NEGATIVE); AMPHET/METH SCREEN,URINE POSITIVE (NEGATIVE); BARBITURATE SCREEN, URINE NEGATIVE (NEGATIVE); CANNABINOID SCREEN,URINE NEGATIVE (NEGATIVE); COCAINE SCREEN,URINE NEGATIVE (NEGATIVE); METHADONE SCREEN, URINE NEGATIVE (NEGATIVE)
[2025-04-21 15:27] LABS: SQUAMOUS EPITHELIAL CELL,UR Rare /LPF (None Seen)
[2025-04-21 16:12] VITALS: BP 115/75; PULSE 82; RESP 18; O2SAT 100
[2025-04-21] MEDS: POTASSIUM CHLORIDE 20 MEQ ER TABLET PO ONE (16:43)
== END 2025-04-21 17:10 | disposition home or self-care (01) ==
LOC: EMS 12:57
DX: F15.10 Other stimulant abuse, uncomplicated (principal); F25.0 Schizoaffective disorder, bipolar type; D57.1 Sickle-cell disease without crisis; F17.210 Nicotine dependence, cigarettes, uncomplicated; Z79.84 Long term (current) use of oral hypoglycemic drugs; Z79.899 Other long term (current) drug therapy
CPT/HCPCS: 99283; 80048; 81001; 82962; 85025; 36415; 80307; G0480